=== PATIENT | female | born 1945 | race Caucasian/White ===

== ENCOUNTER 2017-12-26 10:15 | Observation (INO) ==
--- NOTE | 2017-12-26 10:30 | Emergency Department Note ---
Disposition Clinical Impression: Generalized weakness Dyspnea Qualifiers: Dyspnea type: unspecified Qualified Code(s): R06.00 - Dyspnea, unspecified Disposition: Admitted As Inpatient Condition: Fair Referrals: Dayron Flores MD [Primary Care Provider] - Forms: ED Satisfaction Letter Time of Disposition: 11:07 Weakness HPI - General Chief complaint: ED Weakness Stated complaint: weakness Time Seen by Provider: 12/26/17 10:26 Source: family, EMS Mode of arrival: EMS Limitations: no limitations Nursing Notes Reviewed: Yes Vital Signs Reviewed: Yes - History of Present Illness HPI Narrative: Alert and oriented nontoxic-appearing 72-year-old female presents by EMS for evaluation of generalized weakness/fatigue, shortness of breath, and "I woke up shaking this morning". She states that she has noticed a gradual increase in her generalized weakness/fatigue over the course of the past several days. This was markedly worse this morning upon her awakening. She also complains of a mild degree of shortness of breath, particularly with exertion as well. She denies any chest pain, productive cough, or hemoptysis. She denies any abdominal pain, nausea, or vomiting. She denies any headache or visual disturbances. She denies any focal weakness of any extremities. She states that she has had a history of anemia in the past which has required transfusions on approximately 6 different occasions. She does state the symptoms feel similar to previous episodes of anemia. She denies any blood loss through hematuria, hematochezia, melena, or hematemesis. Pt Subjective Complaint: generalized weakness/fatigue Onset (ago): day(s) Duration: gradually worsening Location: generalized Pain Scale: 0 Improves with: none Worsens with: none Associated symptoms: Reports: shortness of breath. Denies: chest pain, confusion, diaphoresis, dysuria, fever/chills, headaches, nausea/vomiting - Related Data Home Medications Medication Instructions Recorded Confirmed Atenolol [Tenormin] 25 mg PO DAILY 06/07/15 08/27/16 DiphenhydraMINE [Benadryl] 50 mg PO HS 06/07/15 08/27/16 FLUoxetine HCl [Prozac] 40 mg PO DAILY 06/07/15 08/27/16 Glimepiride [Amaryl] 1 mg PO 0800 06/07/15 08/27/16 Lisinopril [Zestril] 20 mg PO DAILY 06/07/15 08/27/16 Omeprazole [PriLOSEC] 20 mg PO DAILY 06/07/15 08/27/16 Buspirone HCl [Buspar] 15 mg PO BID 08/27/16 08/27/16 HYDROcodone/Acet 7.5/325 mg [[place] 1 tab PO BID PRN 08/27/16 08/27/16 7.5-325 mg] Previous Rx's Medication Instructions Recorded Benzonatate [Tessalon] 200 mg PO TID PRN #30 capsule 11/01/16 DiphenhydraMINE [Benadryl] 25 mg PO Q8HR PRN #20 capsule 11/01/16 cephALEXin [Keflex] 500 mg PO QID #40 capsule 11/01/16 Allergies Allergy/AdvReac Type Severity Reaction Status Date / Time guaifenesin [From Mucinex] AdvReac Hives Verified 08/27/16 15:05 morphine AdvReac See Verified 06/06/15 21:15 Comments All systems ED: reviewed and negative except as stated. Constitutional: Reports: as per HPI, weakness (Generalized). Denies: fever, chills, weight change Eyes: Denies: eye pain, eye discharge, vision change ENT ED: Denies: ear pain, throat pain, dental pain, hearing loss, epistaxis, congestion, dysphagia Cardiovascular: Denies: chest pain, palpitations, dyspnea on exertion, edema, syncope Respiratory: Reports: as per HPI, dyspnea. Denies: cough, wheezes, hemoptysis, stridor, sputum production Gastrointestinal: Denies: abdominal pain, nausea, vomiting, diarrhea, constipation, hematemesis, melena, hematochezia Genitourinary: Denies: dysuria, frequency, hematuria, discharge Musculoskeletal: Denies: back pain, neck pain, arthralgia, myalgia Integumentary: Denies: rash, abrasion, lesions Neurological: Denies: headache, weakness, numbness, paresthesias, confusion, abnormal gait, vertigo Psychiatric: Denies: anxiety, depression, suicidal thoughts, homicidal thoughts , auditory hallucinations, visual hallucinations Endocrine: Denies: fatigue Hematological/Lymphatic: Denies: easy bleeding, easy bruising Allergic/Immunologic: Denies: facial swelling, urticaria Past Medical History - Past Medical History Attestation: Yes The following information was validated with the patient. 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 Absent: nystagmus - ENT ENT exam: mucous membranes moist - Neck Neck exam: Present: normal inspection, full ROM, trachea midline - Chest Chest inspection: Present: normal inspection, symmetric chest wall rise - Respiratory Respiratory exam: Present: normal lung sounds bilaterally. Absent: respiratory distress, wheezes, stridor, accessory muscle use, prolonged expiratory phase - Cardiovascular Cardiovascular exam: Present: regular rate, normal rhythm, normal heart sounds - Abdominal Exam Abdominal exam: Present: soft, Non-Tender, normal bowel sounds. Absent: mass, pulsatile mass - Extremities Exam Extremities exam: Present: normal inspection, full ROM, pedal edema (2+ pretibial edema bilaterally). Absent: tenderness - Neurological Exam Neurological exam: Present: alert, oriented X3, normal gait - Psychiatric Psychiatric exam: Present: normal affect, normal mood - Skin Skin exam: Present: warm, dry, intact, normal color. Absent: rash Course Vital Signs Temperature 98.5 F 12/26/17 10:18 Pulse Rate 109 12/26/17 10:18 Respiratory Rate 18 12/26/17 10:18 Blood Pressure 134/62 12/26/17 10:18 O2 Sat by Pulse Oximetry 100 12/26/17 10:18 Temperature 98.5 F 12/26/17 10:18 Pulse Rate 95 12/26/17 10:58 Respiratory Rate 18 12/26/17 10:58 Blood Pressure 127/62 12/26/17 10:58 O2 Sat by Pulse Oximetry 98 12/26/17 10:58 Oxygen Delivery Oxygen Delivery Room Air Weakness - Medical Records Medical records reviewed: Yes I reviewed the patient's medical records. - EKG Data EKG attestation: Yes I reviewed and interpreted this EKG. EKG results narrative: EKG reviewed by Dr. Riggins as well. EKG shows a left bundle branch block at a rate of 107 bpm. QRS duration 144, QT/QTc interval 391/454. No elevation noted. No significant changes when compared to an EKG dated from 08/27/16. Jeff - Jeff Situation: Demographics, MOA Background: Presenting Complaint, Relevant PMH, Meds, & Allergies Assessment: Vital Signs, Course and respsone to treatment, Exam Concerns, Patient/Family Expectation, Pertinant Lab Results, Outstanding Labs Recommendation: Barrier(s) to disposition, Recommendation based on pending studies, treatments, or consults SSada Report Given to: Dr. Thompson Aguilar Repor Time: 11:06
[2017-12-26 10:54] LABS: Bilirubin,Urine Negative (Negative); Blood,Urine Negative (Negative); Clarity,Urine Clear (Clear); Color,Urine Yellow (Yellow); Glucose,Urine (UA) Normal (Normal); Ketones,Urine Negative (Negative); Leukocyte Esterase,Urine Trace (Negative); Nitrite,Urine Negative (Negative); Protein,Urine Negative (Neg-Trace); Specific Gravity,Urine 1.021 (1.010-1.025); Urobilinogen,Urine Normal (Normal)
[2017-12-26 10:57] LABS: Bacteria,Urine None Seen per hpf (None-Few); Hyaline Casts,Urine None Seen per lpf (None-Few); RBC,Urine 0-3 per hpf (0-3); Squamous Epithelial Cell,Urine Moderate per lpf (None-Few)
--- NOTE | 2017-12-26 11:01 | Emergency Department Note ---
Disposition Clinical Impression: Generalized weakness Dyspnea Qualifiers: Dyspnea type: shortness of breath Qualified Code(s): R06.02 - Shortness of breath Anemia Qualifiers: Anemia type: iron deficiency Iron deficiency anemia type: inadequate dietary iron intake Qualified Code(s): D50.8 - Other iron deficiency anemias Disposition: Admitted As Inpatient Condition: Fair Time of Disposition: 14:08 General Adult HPI - General Chief complaint: ED Weakness Stated complaint: weakness Time Seen by Provider: 12/26/17 10:26 Source: family, EMS Mode of arrival: EMS Limitations: no limitations Nursing Notes Reviewed: Yes Vital Signs Reviewed: Yes - History of Present Illness HPI Narrative: Mrs. Cunningham, a 72yo female, presents from home via EMS for evaluation of generalized weakness and fatigue. Onset gradual over the past 3-4 days. Noted to be worse this morning as she awoke shaking and jittery. Associated with mild dyspnea on exertion. Her symptoms are similar to prior episodes in which she had anemia requring tranfusions. Patient notes her hemoglobin has been as low as 4 on prior occasions. Her symptoms today feel similar or slightly worse than when her hemoglobin was 4. Patient has been prescribed iron for iron deficiency anemia however she refuses to take it as it makes her constipation worse. She instead takes her hydrocodone with Metamucil and regular until being intake. Patient refuses EGD she has history of remote gastric stapling 2 for weight loss. Last colonoscopy was sometime ago with no lower GI bleed per patient. Patient does note mild transient peripheral blurry vision. She is followed by [facility] on [facility] for glaucoma and cataracts. This is been ongoing for months. PCP = Dr. Flores ROS: Positive: As above Negative: Fever, chills, cough, chest pains, palpitations, abdominal pains, hematochezia, melena, vomiting. No recent traumas. No focal weakness. Pain Scale: 0 - Related Data Home Medications Medication Instructions Recorded Confirmed FLUoxetine HCl [Prozac] 40 mg PO DAILY 06/07/15 12/26/17 Glimepiride [Amaryl] 1 mg PO 0800 06/07/15 12/26/17 Lisinopril [Zestril] 20 mg PO DAILY 06/07/15 12/26/17 Omeprazole [PriLOSEC] 20 mg PO DAILY 06/07/15 12/26/17 Buspirone HCl [Buspar] 15 mg PO DAILY 08/27/16 12/26/17 Aspirin [Lo-Dose Aspirin EC] 81 mg PO DAILY 12/26/17 12/26/17 Diphenhydramine HCl [Nighttime 50 mg PO DAILY PRN 12/26/17 12/26/17 Sleep Aid] FLUoxetine HCl [Fluoxetine HCl] 40 mg PO QAM 12/26/17 12/26/17 HYDROcodone/Acet 7.5/325 mg [[place] 1 tab PO BID PRN 12/26/17 12/26/17 7.5-325 mg] Lovastatin [Lovastatin] 40 mg PO HS 12/26/17 12/26/17 Metoprolol Succinate [Toprol Xl] 50 mg PO DAILY 12/26/17 12/26/17 Allergies Allergy/AdvReac Type Severity Reaction Status Date / Time guaifenesin [From Mucinex] AdvReac Hives Verified 12/26/17 12:25 morphine AdvReac See Verified 12/26/17 12:25 Comments All systems ED: reviewed and negative except as stated. Review of Systems: As Per HPI Constitutional: Reports: as per HPI, weakness (Generalized). Denies: fever, chills, weight change Eyes: Denies: eye pain, eye discharge, vision change ENT ED: Denies: ear pain, throat pain, dental pain, hearing loss, epistaxis, congestion, dysphagia Cardiovascular: Denies: chest pain, palpitations, dyspnea on exertion, edema, syncope Respiratory: Reports: as per HPI, dyspnea. Denies: cough, wheezes, hemoptysis, stridor, sputum production Gastrointestinal: Denies: abdominal pain, nausea, vomiting, diarrhea, constipation, hematemesis, melena, hematochezia Genitourinary: Denies: dysuria, frequency, hematuria, discharge Musculoskeletal: Denies: back pain, neck pain, arthralgia, myalgia Integumentary: Denies: rash, abrasion, lesions Neurological: Denies: headache, weakness, numbness, paresthesias, confusion, abnormal gait, vertigo Psychiatric: Denies: anxiety, depression, suicidal thoughts, homicidal thoughts , auditory hallucinations, visual hallucinations Endocrine: Denies: fatigue Hematological/Lymphatic: Denies: easy bleeding, easy bruising Allergic/Immunologic: Denies: facial swelling, urticaria Past Medical History - Past Medical History Medical history: Reports: arthritis, diabetes, GERD, hyperlipidemia, renal disease, other Surgical history: Reports: other (gastric sophia, tubal ligation) Psychiatric history: Reports: anxiety, depression 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 Head: atraumatic, normocephalic Eye: normal appearance, PERRL, EOMI, no scleral icterus, no conjunctival injection. Conjunctiva pale. ENT: mucous membranes moist, normal external ear exam Neck: normal inspection, trachea midline, full ROM Chest: normal inspection, symmetric chest rise Respiratory: Good respiratory effort. Bilateral breath sounds are clear without wheezing, crackles, or rhonchi. Cardiovascular: Tachycardic rate and regular rhythm. No clicks, rubs, gallops, or murmors. Normal heart sounds. Abdomen: Obese. Bowel sounds present normoactive x-4 quadrants. Abdomen is soft, nondistended, and nontender. No guarding or rebound. Musculoskeletal: Spontaneously moving all extremities. Skin: Pale. warm, dry, intact. Neuro: Alert and oriented x4. Sensation light touch intact. Psych: Patient's affect is appropriate for situation. - General Limitations: no limitations General appearance: alert Course Course Narrative: EKG data 12/26/17 at 10:23 interpreted as sinus tachycardia with rate of 107. Left bundle branch block that is appropriately discordant. Left axis. Compared to previous dated 08/27/2016 showed no acute ischemic changes; left bundle-branch block present and unchanged. Patient received on sign out from the [facility]AN[facility]. On exam, patient is pale, tachycardic. Neurological neurologically intact, she is subjectively weak. Will provide IV fluid secondary to tachycardia with labwork pending. Patient is anemic to 5.8. She is oriented in type, screen, consented for blood transfusion. Will order 4 units, place a second line, and give 2 units here in emergency department. Patient is agreeable to admission for continued evaluation and management. AP remains appropriate. She does have mild elevation in lactic acid; believe this is secondary to generalized hypoxia secondary to anemia. She does have slight elevation in age corrected d-dimer. This was ordered by the [facility]. Clinically, I have very low clinical suspicion for PE as a cause for her tachycardia and dyspnea. Patient is not PERC negative secondary to tachycardia and age. Wells PE score is 1.5 secondary to tachycardia. I discussed the patient with the admitting hospitalist. She agrees to accept the patient for continued evaluation and management. Vital Signs Temperature 98.5 F 12/26/17 10:18 Pulse Rate 109 12/26/17 10:18 Respiratory Rate 18 12/26/17 10:18 Blood Pressure 134/62 12/26/17 10:18 O2 Sat by Pulse Oximetry 100 12/26/17 10:18 Temperature 98.3 F 12/26/17 13:13 Pulse Rate 107 12/26/17 13:28 Respiratory Rate 20 12/26/17 13:28 Blood Pressure 141/77 12/26/17 13:28 O2 Sat by Pulse Oximetry 100 12/26/17 13:28 Oxygen Delivery Oxygen Delivery Room Air Medical Decision Making - Lab Data Result diagrams: 12/26/17 11:08 12/26/17 11:08 Lab Results 12/26/17 12/26/17 12/26/17 Range/Units 10:41 11:08 11:08 WBC 4.0 L (4.3-11.1) K/mcL RBC 3.65 L (3.82-4.97) M/mcL Hgb 5.8 L* (11.5-15.4) g/dL Hct 23.3 L (35.3-44.9) % MCV 63.8 L (83.0-100.0) fL MCH 15.9 L (28.0-33.3) pg MCHC 24.9 L (31.6-35.5) g/dL RDW 18.9 H (11.5-14.5) % Plt Count 197 (140-400) K/mcL MPV 9.6 (9.4-12.4) fL Immature Gran % 0.7 (0-4) % Seg Neutrophils % 68.4 % Lymphocytes % 20.5 % Monocytes % 9.2 % Eosinophils % 0.7 % Basophils % 0.5 % Neutrophils # 2.7 (1.6-8.9) K/mcL Lymphocytes # 0.8 (0.6-4.6) K/mcL Monocytes # 0.4 (0.0-1.3) K/mcL Eosinophils # 0.0 (0.0-0.6) K/mcL Basophils # 0.0 (0.0-0.2) K/mcL Platelet Estimate Normal (Normal) Hypochromasia Present A (Not Present) Anisocytosis 1+ A (Not Present) PT 12.7 H (9.4-12.1) Seconds INR 1.2 APTT (26.0-36.0) Seconds D-Dimer 884 H (0-500) ng/mLFEU Sodium (136-145) mEq/L Potassium (3.5-5.1) mEq/L Chloride (98-107) mEq/L Carbon Dioxide (23-29) mEq/L BUN (8-23) mg/dL Creatinine (0.60-1.20) mg/dL Est GFR ( Amer) (> 60) Est GFR (Non-Af Amer) (> 60) BUN/Creatinine Ratio (6-26) Glucose (70-105) mg/dL Calculated Osmolality (280-300) Lactic Acid (0.5-2.2) mmol/L Calcium (8.6-10.3) mg/dL Magnesium (1.6-2.6) mg/dL Total Bilirubin (0.3-1.0) mg/dL AST (13-39) Units/L ALT (7-52) Units/L Alkaline Phosphatase (34-104) Units/L Troponin I (< 0.04) ng/mL B-Natriuretic Peptide (Less than 100) pg/mL Serum Total Protein (6.4-8.9) g/dL Albumin (3.5-5.7) g/dL Globulin (2.4-3.5) g/dL Albumin/Globulin Ratio (1.1-2.2) TSH (0.340-5.600) mcIU/mL Urine Color Yellow (Yellow) Urine Clarity Clear (Clear) Urine pH 6.0 (5.0-8.0) pH Units Ur Specific [place] 1.021 (1.010-1.025) Urine Protein Negative (Neg-Trace) mg/dL Urine Glucose (UA) Normal (Normal) mg/dL Urine Ketones Negative (Negative) mg/dL Urine Blood Negative (Negative) Urine Nitrite Negative (Negative) Urine Bilirubin Negative (Negative) Urine Urobilinogen Normal (Normal) mg/dL Ur Leukocyte Esterase Trace H (Negative) Urine Microscopic RBC 0-3 (0-3) per hpf Urine Microscopic WBC 3-5 H (0-3) per hpf Ur Squamous Epith Cells Moderate H (None-Few) per lpf Urine Bacteria None Seen (None-Few) per hpf Hyaline Casts None Seen (None-Few) per lpf Ur Culture Indicated? YES A (NO) Blood Type Antibody Screen Crossmatch 12/26/17 12/26/17 12/26/17 Range/Units 11:08 11:08 11:08 WBC (4.3-11.1) K/mcL RBC (3.82-4.97) M/mcL Hgb (11.5-15.4) g/dL Hct (35.3-44.9) % MCV (83.0-100.0) fL MCH (28.0-33.3) pg MCHC (31.6-35.5) g/dL RDW (11.5-14.5) % Plt Count (140-400) K/mcL MPV (9.4-12.4) fL Immature Gran % (0-4) % Seg Neutrophils % % Lymphocytes % % Monocytes % % Eosinophils % % Basophils % % Neutrophils # (1.6-8.9) K/mcL Lymphocytes # (0.6-4.6) K/mcL Monocytes # (0.0-1.3) K/mcL Eosinophils # (0.0-0.6) K/mcL Basophils # (0.0-0.2) K/mcL Platelet Estimate (Normal) Hypochromasia (Not Present) Anisocytosis (Not Present) PT (9.4-12.1) Seconds INR APTT (26.0-36.0) Seconds D-Dimer (0-500) ng/mLFEU Sodium 135 L (136-145) mEq/L Potassium 3.9 (3.5-5.1) mEq/L Chloride 102 (98-107) mEq/L Carbon Dioxide 23 (23-29) mEq/L BUN 15 (8-23) mg/dL Creatinine 1.03 (0.60-1.20) mg/dL Est GFR ( Amer) > 60 (> 60) Est GFR (Non-Af Amer) 53 L (> 60) BUN/Creatinine Ratio 15 (6-26) Glucose 207 H (70-105) mg/dL Calculated Osmolality 287 (280-300) Lactic Acid 2.9 H (0.5-2.2) mmol/L Calcium 9.1 (8.6-10.3) mg/dL Magnesium 1.7 (1.6-2.6) mg/dL Total Bilirubin 0.6 (0.3-1.0) mg/dL AST 22 (13-39) Units/L ALT 15 (7-52) Units/L Alkaline Phosphatase 80 (34-104) Units/L Troponin I < 0.03 (< 0.04) ng/mL B-Natriuretic Peptide (Less than 100) pg/mL Serum Total Protein 6.7 (6.4-8.9) g/dL Albumin 3.9 (3.5-5.7) g/dL Globulin 2.8 (2.4-3.5) g/dL Albumin/Globulin Ratio 1.4 (1.1-2.2) TSH 2.283 (0.340-5.600) mcIU/mL Urine Color (Yellow) Urine Clarity (Clear) Urine pH (5.0-8.0) pH Units Ur Specific [place] (1.010-1.025) Urine Protein (Neg-Trace) mg/dL Urine Glucose (UA) (Normal) mg/dL Urine Ketones (Negative) mg/dL Urine Blood (Negative) Urine Nitrite (Negative) Urine Bilirubin (Negative) Urine Urobilinogen (Normal) mg/dL Ur Leukocyte Esterase (Negative) Urine Microscopic RBC (0-3) per hpf Urine Microscopic WBC (0-3) per hpf Ur Squamous Epith Cells (None-Few) per lpf Urine Bacteria (None-Few) per hpf Hyaline Casts (None-Few) per lpf Ur Culture Indicated? (NO) Blood Type A NEGATIVE Antibody Screen NEGATIVE Crossmatch See Detail 12/26/17 12/26/17 Range/Units 11:08 11:08 WBC (4.3-11.1) K/mcL RBC (3.82-4.97) M/mcL Hgb (11.5-15.4) g/dL Hct (35.3-44.9) % MCV (83.0-100.0) fL MCH (28.0-33.3) pg MCHC (31.6-35.5) g/dL RDW (11.5-14.5) % Plt Count (140-400) K/mcL MPV (9.4-12.4) fL Immature Gran % (0-4) % Seg Neutrophils % % Lymphocytes % % Monocytes % % Eosinophils % % Basophils % % Neutrophils # (1.6-8.9) K/mcL Lymphocytes # (0.6-4.6) K/mcL Monocytes # (0.0-1.3) K/mcL Eosinophils # (0.0-0.6) K/mcL Basophils # (0.0-0.2) K/mcL Platelet Estimate (Normal) Hypochromasia (Not Present) Anisocytosis (Not Present) PT (9.4-12.1) Seconds INR APTT 30.9 (26.0-36.0) Seconds D-Dimer (0-500) ng/mLFEU Sodium (136-145) mEq/L Potassium (3.5-5.1) mEq/L Chloride (98-107) mEq/L Carbon Dioxide (23-29) mEq/L BUN (8-23) mg/dL Creatinine (0.60-1.20) mg/dL Est GFR ( Amer) (> 60) Est GFR (Non-Af Amer) (> 60) BUN/Creatinine Ratio (6-26) Glucose (70-105) mg/dL Calculated Osmolality (280-300) Lactic Acid (0.5-2.2) mmol/L Calcium (8.6-10.3) mg/dL Magnesium (1.6-2.6) mg/dL Total Bilirubin (0.3-1.0) mg/dL AST (13-39) Units/L ALT (7-52) Units/L Alkaline Phosphatase (34-104) Units/L Troponin I (< 0.04) ng/mL B-Natriuretic Peptide 130 H (Less than 100) pg/mL Serum Total Protein (6.4-8.9) g/dL Albumin (3.5-5.7) g/dL Globulin (2.4-3.5) g/dL Albumin/Globulin Ratio (1.1-2.2) TSH (0.340-5.600) mcIU/mL Urine Color (Yellow) Urine Clarity (Clear) Urine pH (5.0-8.0) pH Units Ur Specific [place] (1.010-1.025) Urine Protein (Neg-Trace) mg/dL Urine Glucose (UA) (Normal) mg/dL Urine Ketones (Negative) mg/dL Urine Blood (Negative) Urine Nitrite (Negative) Urine Bilirubin (Negative) Urine Urobilinogen (Normal) mg/dL Ur Leukocyte Esterase (Negative) Urine Microscopic RBC (0-3) per hpf Urine Microscopic WBC (0-3) per hpf Ur Squamous Epith Cells (None-Few) per lpf Urine Bacteria (None-Few) per hpf Hyaline Casts (None-Few) per lpf Ur Culture Indicated? (NO) Blood Type Antibody Screen Crossmatch Critical Care Time Critical Care Time: Yes Total Critical Care Time: 35 Attestation: The high probability of a clinically significant, sudden or life threatening deterioration of the [heme] system(s) required my full and direct attention, intervention and personal management. The aggregate critical care time was [35] minutes. This time is in addition to time spent performing reported procedures but includes the following: [x] Data Review and interpretation [x] Patient assessment and monitoring of vital signs [x] Documentation [X] Medication orders and management
[2017-12-26] MEDS ORDERED: 0.9 % Sodium Chloride 1,000 ML IVC ONE (11:22)
[2017-12-26 11:25] LABS: Basophils % 0.5 %
[2017-12-26 11:26] LABS: Eosinophils % 0.7 %; Hematocrit 23.3 % (35.3-44.9); Immature Granulocytes % 0.7 % (0-4); Lymphocytes # 0.8 K/mcL (0.6-4.6); Lymphocytes % 20.5 %; Mean Corpuscular HGB Conc 24.9 g/dL (31.6-35.5); Mean Corpuscular Hemoglobin 15.9 pg (28.0-33.3); Mean Corpuscular Volume 63.8 fL (83.0-100.0); Mean Platelet Volume 9.6 fL (9.4-12.4); Monocytes # 0.4 K/mcL (0.0-1.3); Monocytes % 9.2 %; Platelet Count 197 K/mcL (140-400); Red Blood Count 3.65 M/mcL (3.82-4.97); Red Cell Distribution Width 18.9 % (11.5-14.5); Segmented Neutrophils % 68.4 %
[2017-12-26 11:28] LABS: Neutrophils # 2.7 K/mcL (1.6-8.9)
[2017-12-26 11:31] LABS: Hemoglobin 5.8 g/dL (11.5-15.4)
[2017-12-26 11:33] LABS: INR 1.2; Prothrombin Time 12.7 Seconds (9.4-12.1)
[2017-12-26 11:46] LABS: Alanine Aminotransferase 15 Units/L (7-52); Albumin 3.9 g/dL (3.5-5.7); Albumin/Globulin Ratio 1.4 (1.1-2.2); Alkaline Phosphatase 80 Units/L (34-104); Aspartate Amino Transferase 22 Units/L (13-39); BUN/Creatinine Ratio 15 (6-26); Bilirubin,Total 0.6 mg/dL (0.3-1.0); Blood Urea Nitrogen 15 mg/dL (8-23); Calcium 9.1 mg/dL (8.6-10.3); Carbon Dioxide 23 mEq/L (23-29); Chloride 102 mEq/L (98-107); Globulin 2.8 g/dL (2.4-3.5); Glucose 207 mg/dL (70-105); Magnesium 1.7 mg/dL (1.6-2.6); Osmolality,Calculated 287 (280-300); Potassium 3.9 mEq/L (3.5-5.1); Sodium 135 mEq/L (136-145); Total Protein 6.7 g/dL (6.4-8.9); Troponin I < 0.03 ng/mL (< 0.04); eGFR For African Americans > 60 (> 60); eGFR For Non-African Americans 53 (> 60)
[2017-12-26 11:59] LABS: Thyroid Stimulating Hormone 2.283 mcIU/mL (0.340-5.600)
[2017-12-26 12:14] LABS: Hypochromasia Present (Not Present)
[2017-12-26 12:15] LABS: Anisocytosis 1+ (Not Present); Platelet Estimate Normal (Normal)
[2017-12-26] MEDS ORDERED: 0.9 % Sodium Chloride 250 ML ONE ×2 (12:32→16:09)
[2017-12-26] MEDS ORDERED: Acetaminophen 325 MG TABLET PO PRN (12:52)
[2017-12-26] MEDS ORDERED: Naloxone 0.4 MG/ML INJ IVP PRN (12:52)
[2017-12-26] MEDS ORDERED: Furosemide 20 MG/2 ML VIAL IVP ONE (12:58)
[2017-12-26] MEDS ORDERED: D5% in Water 1,000 ML IVC PRN (13:10)
[2017-12-26] MEDS ORDERED: *HR* Dextrose 50 % in Water (Syg) 50 ML SYRINGE IVP PRN (13:10)
[2017-12-26] MEDS ORDERED: Dextrose Gel 15 GM/37.5 ML TUBE PO PRN ×2 (13:10)
--- NOTE | 2017-12-26 13:15 | Internal Med History&Physical ---
<SivasuellenlisandroAriel harding - Last Filed: 12/26/17 14:12> Date of Encounter: 12/26/17 Time of Encounter: 12:15 Internal Medicine - H&P: HPI Chief complaint: Weakness Admitted From: Emergency Dept Plans for Post Hospital Care: Home History of present illness: Ms. Cunningham is a 72 year old female w/PMH of arthritis, diabetes controlled with oral anti-hyperglycemics, GERD, HLD, HTN, and CKD presents from the ED w/CC of weakness and SOB over the past three days that worsened this morning. Pt. also reports shaking uncontrollably. SOB worse w/exertion. Pt. states she had difficulty walking d/t weakness. Reports chronic anemia but denies unusual bleeding. States that she had gastric stapling in 1979 and 1983 and was told she may become anemic as a result. Patient is morbidly obese. Patient denies recent sick contacts, nausea, vomiting, diarrhea, fever, recent illness, headache, changes in vision, cough, chest congestion, abdominal pain, constipation, dizziness, lightheadedness, presyncope, or syncope. Past Med Surg Social Fam HX - Past Medical History Source: patient, old records reviewed Medical history: arthritis, diabetes, GERD, hyperlipidemia, hypertension, renal disease, other Psychiatric history: anxiety, depression - Past Surgical History Surgical History: other (Gastric sophia in 1979 and 1983, Tubal ligation) - Social History Smoking Status: Never smoker Smokeless Tobacco Status: No Alcohol use: none Drug use: none Current living situation: Home Activity Level: Independent ambulation Recent Out of Country Travel Within the Last 8 Weeks: No Exposure or Possible Exposure to Illness During Travel: No - Family History Mother Race: Family Member Ethnicity: Non- Living Status: Age at : 91 Cause of : Complications from fall Father Race: Family Member Ethnicity: Non- Living Status: Age at : 82 Cause of : Complications from fall Hx Family Genitourinary Disorders: Yes (CKD) Hx Family Endocrine Disorder: Yes (DM) Brother Race: Family Member Ethnicity: Non- Living Status: Still Living Hx Family Cardiac Disorders: Yes (HTN, HLD) Hx Family Endocrine Disorder: Yes (DM, Thyroid disease) Sister Race: Family Member Ethnicity: Non- Living Status: Still Living Hx Family Musculoskeletal Disorders: Yes (Chronic pain) Internal Medicine - H&P: Meds FLUoxetine HCl [Prozac] 40 mg PO DAILY 06/07/15 [History] Glimepiride [Amaryl] 1 mg PO 0800 06/07/15 [History] Lisinopril [Zestril] 20 mg PO DAILY 06/07/15 [History] Omeprazole [PriLOSEC] 20 mg PO DAILY 06/07/15 [History] Buspirone HCl [Buspar] 15 mg PO DAILY 08/27/16 [History] Aspirin [Lo-Dose Aspirin EC] 81 mg PO DAILY 12/26/17 [History] Diphenhydramine HCl [Nighttime Sleep Aid] 50 mg PO DAILY PRN 12/26/17 [History] FLUoxetine HCl [Fluoxetine HCl] 40 mg PO QAM 12/26/17 [History] HYDROcodone/Acet 7.5/325 mg [[place] 7.5-325 mg] 1 tab PO BID PRN 12/26/17 [ History] Lovastatin [Lovastatin] 40 mg PO HS 12/26/17 [History] Metoprolol Succinate [Toprol Xl] 50 mg PO DAILY 12/26/17 [History] 3 Allergy/AdvReac Type Severity Reaction Status Date / Time guaifenesin [From Mucinex] AdvReac Hives Verified 12/26/17 12:25 morphine AdvReac See Verified 12/26/17 12:25 Comments All Systems PM: A 10-system review of systems was performed and is negative for pertinent findings except as documented above in the HPI. - Constitutional Constitutional: as per HPI, fatigue, weakness, no chills, no fever(s), no night sweats - EENT Eyes: no change in vision, no discharge, no pain, no photophobia Ears: no ear discharge, no ear pain, no tinnitus Nose, mouth and throat: no dysphagia, no nasal discharge, no neck pain, no sore throat - Breasts Breasts: as per HPI - Cardiovascular Cardiovascular ROS IM: as per HPI, dyspnea, dyspnea on exertion, edema ( Bilateral LEs), no chest pain, no diaphoresis, no lightheadedness, no palpitations, no syncope - Respiratory Respiratory: as per HPI, dyspnea, dyspnea on exertion, no cough, no wheezing, no excessive phlegm production - Gastrointestinal Gastrointestinal: no abdominal pain, no diarrhea, no hematemesis, no hematochezia, no melena, no nausea, no vomiting - Genitourinary Genitourinary: no change in urinary stream, no dysuria, no flank pain, no hematuria Menstruation: as per HPI - Musculoskeletal Musculoskeletal ROS IM: no numbness, no tingling - Integumentary Integumentary IM: no rash, no unusual bruising - Neurological Neurological ROS: as per HPI, weakness, no confusion, no convulsions, no focal weakness, no numbness, no tingling, no tremor(s) - Psychiatric Psychiatric: as per HPI, anxiety, depression - Endocrine Endocrine IM: as per HPI - Hematologic/Lymphatic Hematologic/Lymphatic: no easy bruising - Allergic/Immunologic Allergic/Immunologic: as per HPI - Constitutional Vitals: Temp Pulse Resp BP Pulse Ox 98.2 F 111 20 159/61 100 12/26/17 12:58 12/26/17 12:58 12/26/17 12:58 12/26/17 12:58 12/26/17 11:53 General appearance: Present: cooperative, A&O X 3, morbidly obese, pleasant, no acute distress, answers questions appropriately - Head Head exam: Present: atraumatic, normocephalic - Eye Eye exam: Present: PERRL, conjuntiva pink, sclera anicteric Pupils: Present: PERRL - ENT ENT exam: Present: normal exam - Neck Neck exam general surgery: Present: normal inspection, supple, trachea midline. Absent: lymphadenopathy - Respiratory Respiratory exam: Present: CTAB. Absent: accessory muscle use, rales, rhonchi, wheezes - Cardiovascular Cardiovascular exam: Present: RRR, +S1, +S2. Absent: diastolic murmur, gallop, rubs, systolic murmur - GI/Abdominal GI/Abdominal exam: Present: normal bowel sounds, soft, no peritoneal signs. Absent: distended, tenderness - Rectal Rectal exam: Present: deferred - Additional comments: exam deferred. - Extremities Exam Extremities exam: Present: pedal edema (Bilateral pedal edema), warm, radial pulses palpable and symmetrical. Absent: calf tenderness, cyanotic - Back Exam Back exam: Present: normal inspection - Neurological Exam Neurological exam: Present: CN II-XII intact, oriented X3, no focal deficits. Absent: pronater drift, facial droop, speech deficit - Psychiatric Psychiatric exam: Present: normal affect, normal mood - Skin Skin exam: Present: dry, erythema (Bilateral LEs), intact Internal Med - H&P Results - Labs CBC & Chem 7: 12/26/17 11:08 12/26/17 11:08 - EKG Data Prior EKG available for review: yes EKG comments: 12/26/17 13:25 EKG dated 08/27/16 shows sinus rhythm with LBBB. EKG dated 12/26/17 shows uncertain irregular rhythm with LBBB. - Diagnostic Studies Chest x-ray Additional comments: Impressions Chest X-Ray 12/26/17 10:26 IMPRESSION: 1. No active pulmonary disease. 2. Chronic elevation right hemidiaphragm. D/ / Holden Fletcher MD / Holden Fletcher MD Interpreting Provider: Holden Fletcher MD - Assessment and plan (1) Generalized weakness Current Visit: Yes Status: Acute Assessment and plan: Severe and generalized weakness that has progressively become worse this morning. Pt. states unable to ambulate safely. Pts. current Hgb 5.8 on admission and reports hx of chronic anemia. Pt. typed and screened. 4 units of PRBCs ordered. 20 mg IVP lasix after first unit of PRBCs completed to avoid fluid overload. PT/OT consults. Falls/safety precautions, up with assist, bed rest w/bedside commode w/assist only d/t SOB and weakness. Monitor H/H Q4HR. Pt. discussed w/Dr. Bonds who agrees w/plan of care. Pt. is high risk for further morbidity d/t current hgb of 5.8 and hx of chronic anemia requiring current transfusions, elevated D-dimer and possible PE/DVT(s), SOB, weakness, morbid obesity, hx, and risk factors. Observation. (2) Dyspnea Current Visit: Yes Status: Acute Assessment and plan: Acutely worsening SOB today most likely d/t anemia but also concern for possible PE d/t D-dimer of 884 on admission. VQ scan ordered. Supplemental O2 w/ titration and SpO2 monitoring. Falls/safety precautions, up with assist, bed rest w/bedside commode w/assist only. Qualifiers: Dyspnea type: shortness of breath Qualified Code(s): R06.02 - Shortness of breath; R06.00 - Dyspnea, unspecified; R06.01 - Orthopnea (3) Leukopenia Current Visit: Yes Status: Acute Assessment and plan: Acute leukopenia w/WBC of 4.0 on admission. Pt. denies illness or sx. Currently afebrile and asymptomatic. Likely d/t current anemia. Monitor pt. and f/u labs. Qualifiers: Leukopenia type: unspecified Qualified Code(s): D72.819 - Decreased white blood cell count, unspecified (4) Elevated d-dimer Current Visit: Yes Status: Acute Assessment and plan: Acutely elevated D-dimer of 884 on admission. Pt. reports SOB for three days which worsened this morning. Concern for PE. VQ scan ordered. Bilateral Dopplers of LEs ordered to r/o DVT(s). (5) Elevated brain natriuretic peptide (BNP) level Current Visit: Yes Status: Acute Assessment and plan: Acutely elevated BNP of 130 on admission. No recent cardiac work-up or previous dx of CHF. Echocardiogram to assess for HF. Will monitor for fluid overload. Continuous cardiac telemetry. Monitor I&O and daily weight. (6) HTN (hypertension) Current Visit: Yes Status: Chronic Assessment and plan: Hx of chronic HTN. Monitor pt. and VS. Continue pts. Metoprolol and lisinopril. Qualifiers: Hypertension type: essential hypertension Qualified Code(s): I10 - Essential (primary) hypertension (7) HLD (hyperlipidemia) Current Visit: Yes Status: Chronic Assessment and plan: Hx of chronic HLD. Lipid panel in a.m. labs. Continue pts. Lovastatin. Qualifiers: Hyperlipidemia type: pure hypercholesterolemia Qualified Code(s): E78.00 - Pure hypercholesterolemia, unspecified; E78.0 - Pure hypercholesterolemia (8) Anemia Current Visit: Yes Status: Chronic Assessment and plan: Hx of chronic symptomatic anemia. Pts. current Hgb 5.8 and Hct 23.3. Denies unusual bleeding. Last readings were 10.0 in 2017. Pt. typed and screened w/4 units of PRBCs ordered in ED. 20 mg IVP lasix to be administered after first unit to avoid fluid overload. H/H Q4HR. Fecal hemoccult ordered. Falls/safety precautions, up with assist, and bed rest w/bedside commode w/assist only d/t weakness. Qualifiers: Anemia type: iron deficiency Iron deficiency anemia type: inadequate dietary iron intake Qualified Code(s): D50.8 - Other iron deficiency anemias (9) Morbid obesity with BMI of 45.0-49.9, adult Current Visit: Yes Status: Chronic Assessment and plan: Hx of morbid obesity. Pt. also reports familial hx of morbid obesity. BMI currently 43.9. Pt. reports gastric stapling in 1979 and 1983. Monitor I&O and daily weight. Diabetic diet. (10) CKD (chronic kidney disease) stage 3, GFR 30-59 ml/min Current Visit: Yes Status: Chronic Assessment and plan: Hx of chronic CKD. Currently stage 3 w/GFR of 53 and creatinine of 1.03. Will use IV fluids judiciously and avoid nephrotoxins. Monitor I&O and daily weight. (11) Diabetes Current Visit: Yes Status: Chronic Assessment and plan: Hx of chronic diabetes controlled w/oral anti-hyperglycemics. Hold oral medications and administer low-dose correction insulin sliding scale w/ hypoglycemic protocol. A1c in a.m. labs. BG checks ACHS. Qualifiers: Diabetes mellitus type: type 2 Diabetes mellitus penitentiary insulin use: without penitentiary use Diabetes mellitus complication status: with unspecified complications Qualified Code(s): E11.8 - Type 2 diabetes mellitus with unspecified complications (12) DVT prophylaxis Current Visit: Yes Status: Acute Assessment and plan: Bilateral SCDs on LEs for DVT prophylaxis d/t current Hgb <6 and possibility of GI bleed. Fecal hemoccult ordered. Monitor pt. for signs of bleeding. - Time Spent With Patient Total time spent is greater than 50% in coordination of care (as documented) at patient's floor/unit and/or counseling patient: 25 - 35 minutes <Jules Bonds - Last Filed: 12/26/17 17:04> Date of Encounter: 12/26/17 Internal Medicine - H&P: HPI History of present illness: Ms. Cunningham is a 72 year old female All Systems PM: A 10-system review of systems was performed and is negative for pertinent findings except as documented above in the HPI. - Constitutional Vitals: Temp Pulse Resp BP Pulse Ox 98.3 F 100 18 121/67 99 12/26/17 16:28 12/26/17 16:28 12/26/17 16:28 12/26/17 16:28 12/26/17 16:28 Internal Med - H&P Results - Labs CBC & Chem 7: 12/26/17 11:08 12/26/17 11:08 - Impressions ITS Impressions Pulmonary Perfusion Imaging 12/26/17 13:20 IMPRESSION: Very low probability for pulmonary embolism. D/ / Manpreet Giordano MD / Manpreet Giordano MD Interpreting Provider: Manpreet Giordano MD - Attending Attestation I saw and examined this patient independently, and my medical decision making was reviewed with [employer]PA on 2017. I agree with the documented findings, assessment and treatment plan as described in the progress note. - Time Spent With Patient Total time spent is greater than 50% in coordination of care (as documented) at patient's floor/unit and/or counseling patient:
--- NOTE | 2017-12-26 13:29 | Emergency Department Note ---
Disposition Clinical Impression: Generalized weakness, Anemia Dyspnea Qualifiers: Dyspnea type: shortness of breath Qualified Code(s): R06.02 - Shortness of breath Disposition: Admitted As Inpatient Condition: Fair General Adult HPI - General Chief complaint: ED Weakness Stated complaint: weakness Time Seen by Provider: 12/26/17 10:26 Source: family, EMS Mode of arrival: EMS Limitations: no limitations - History of Present Illness Pain Scale: 0 - Related Data Home Medications Medication Instructions Recorded Confirmed FLUoxetine HCl [Prozac] 40 mg PO DAILY 06/07/15 12/26/17 Glimepiride [Amaryl] 1 mg PO 0800 06/07/15 12/26/17 Lisinopril [Zestril] 20 mg PO DAILY 06/07/15 12/26/17 Omeprazole [PriLOSEC] 20 mg PO DAILY 06/07/15 12/26/17 Buspirone HCl [Buspar] 15 mg PO DAILY 08/27/16 12/26/17 Aspirin [Lo-Dose Aspirin EC] 81 mg PO DAILY 12/26/17 12/26/17 Diphenhydramine HCl [Nighttime 50 mg PO DAILY PRN 12/26/17 12/26/17 Sleep Aid] FLUoxetine HCl [Fluoxetine HCl] 40 mg PO QAM 12/26/17 12/26/17 HYDROcodone/Acet 7.5/325 mg [[place] 1 tab PO BID PRN 12/26/17 12/26/17 7.5-325 mg] Lovastatin [Lovastatin] 40 mg PO HS 12/26/17 12/26/17 Metoprolol Succinate [Toprol Xl] 50 mg PO DAILY 12/26/17 12/26/17 Allergies Allergy/AdvReac Type Severity Reaction Status Date / Time guaifenesin [From Mucinex] AdvReac Hives Verified 12/26/17 12:25 morphine AdvReac See Verified 12/26/17 12:25 Comments Constitutional: Reports: as per HPI, weakness (Generalized). Denies: fever, chills, weight change Eyes: Denies: eye pain, eye discharge, vision change ENT ED: Denies: ear pain, throat pain, dental pain, hearing loss, epistaxis, congestion, dysphagia Cardiovascular: Denies: chest pain, palpitations, dyspnea on exertion, edema, syncope Respiratory: Reports: as per HPI, dyspnea. Denies: cough, wheezes, hemoptysis, stridor, sputum production Gastrointestinal: Denies: abdominal pain, nausea, vomiting, diarrhea, constipation, hematemesis, melena, hematochezia Genitourinary: Denies: dysuria, frequency, hematuria, discharge Musculoskeletal: Denies: back pain, neck pain, arthralgia, myalgia Integumentary: Denies: rash, abrasion, lesions Neurological: Denies: headache, weakness, numbness, paresthesias, confusion, abnormal gait, vertigo Psychiatric: Denies: anxiety, depression, suicidal thoughts, homicidal thoughts , auditory hallucinations, visual hallucinations Endocrine: Denies: fatigue Hematological/Lymphatic: Denies: easy bleeding, easy bruising Allergic/Immunologic: Denies: facial swelling, urticaria Past Medical History - Past Medical History Medical history: Reports: arthritis, diabetes, GERD, hyperlipidemia, hypertension, renal disease, other Surgical history: Reports: other (Gastric sophia in 1979 and 1983, Tubal ligation) Psychiatric history: Reports: anxiety, depression 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 - Social History Smoking Status: Never smoker Smokeless Tobacco Status: No Alcohol use: Reports: none Drug use: Reports: none Physical Exam - General Limitations: no limitations General appearance: alert Course Vital Signs Temperature 98.5 F 12/26/17 10:18 Pulse Rate 109 12/26/17 10:18 Respiratory Rate 18 12/26/17 10:18 Blood Pressure 134/62 12/26/17 10:18 O2 Sat by Pulse Oximetry 100 12/26/17 10:18 Temperature 98.3 F 12/26/17 14:26 Pulse Rate 91 12/26/17 14:26 Respiratory Rate 18 12/26/17 14:26 Blood Pressure 140/80 12/26/17 14:26 O2 Sat by Pulse Oximetry 98 12/26/17 14:26 Oxygen Delivery Oxygen Delivery Room Air Medical Decision Making - Lab Data Result diagrams: 12/26/17 11:08 12/26/17 11:08 Lab Results 12/26/17 12/26/17 12/26/17 Range/Units 10:41 11:08 11:08 WBC 4.0 L (4.3-11.1) K/mcL RBC 3.65 L (3.82-4.97) M/mcL Hgb 5.8 L* (11.5-15.4) g/dL Hct 23.3 L (35.3-44.9) % MCV 63.8 L (83.0-100.0) fL MCH 15.9 L (28.0-33.3) pg MCHC 24.9 L (31.6-35.5) g/dL RDW 18.9 H (11.5-14.5) % Plt Count 197 (140-400) K/mcL MPV 9.6 (9.4-12.4) fL Immature Gran % 0.7 (0-4) % Seg Neutrophils % 68.4 % Lymphocytes % 20.5 % Monocytes % 9.2 % Eosinophils % 0.7 % Basophils % 0.5 % Neutrophils # 2.7 (1.6-8.9) K/mcL Lymphocytes # 0.8 (0.6-4.6) K/mcL Monocytes # 0.4 (0.0-1.3) K/mcL Eosinophils # 0.0 (0.0-0.6) K/mcL Basophils # 0.0 (0.0-0.2) K/mcL Platelet Estimate Normal (Normal) Hypochromasia Present A (Not Present) Anisocytosis 1+ A (Not Present) PT 12.7 H (9.4-12.1) Seconds INR 1.2 APTT (26.0-36.0) Seconds D-Dimer 884 H (0-500) ng/mLFEU Sodium (136-145) mEq/L Potassium (3.5-5.1) mEq/L Chloride (98-107) mEq/L Carbon Dioxide (23-29) mEq/L BUN (8-23) mg/dL Creatinine (0.60-1.20) mg/dL Est GFR ( Amer) (> 60) Est GFR (Non-Af Amer) (> 60) BUN/Creatinine Ratio (6-26) Glucose (70-105) mg/dL Calculated Osmolality (280-300) Lactic Acid (0.5-2.2) mmol/L Calcium (8.6-10.3) mg/dL Magnesium (1.6-2.6) mg/dL Total Bilirubin (0.3-1.0) mg/dL AST (13-39) Units/L ALT (7-52) Units/L Alkaline Phosphatase (34-104) Units/L Troponin I (< 0.04) ng/mL B-Natriuretic Peptide (Less than 100) pg/mL Serum Total Protein (6.4-8.9) g/dL Albumin (3.5-5.7) g/dL Globulin (2.4-3.5) g/dL Albumin/Globulin Ratio (1.1-2.2) TSH (0.340-5.600) mcIU/mL Urine Color Yellow (Yellow) Urine Clarity Clear (Clear) Urine pH 6.0 (5.0-8.0) pH Units Ur Specific [place] 1.021 (1.010-1.025) Urine Protein Negative (Neg-Trace) mg/dL Urine Glucose (UA) Normal (Normal) mg/dL Urine Ketones Negative (Negative) mg/dL Urine Blood Negative (Negative) Urine Nitrite Negative (Negative) Urine Bilirubin Negative (Negative) Urine Urobilinogen Normal (Normal) mg/dL Ur Leukocyte Esterase Trace H (Negative) Urine Microscopic RBC 0-3 (0-3) per hpf Urine Microscopic WBC 3-5 H (0-3) per hpf Ur Squamous Epith Cells Moderate H (None-Few) per lpf Urine Bacteria None Seen (None-Few) per hpf Hyaline Casts None Seen (None-Few) per lpf Ur Culture Indicated? YES A (NO) Blood Type Antibody Screen Crossmatch 12/26/17 12/26/17 12/26/17 Range/Units 11:08 11:08 11:08 WBC (4.3-11.1) K/mcL RBC (3.82-4.97) M/mcL Hgb (11.5-15.4) g/dL Hct (35.3-44.9) % MCV (83.0-100.0) fL MCH (28.0-33.3) pg MCHC (31.6-35.5) g/dL RDW (11.5-14.5) % Plt Count (140-400) K/mcL MPV (9.4-12.4) fL Immature Gran % (0-4) % Seg Neutrophils % % Lymphocytes % % Monocytes % % Eosinophils % % Basophils % % Neutrophils # (1.6-8.9) K/mcL Lymphocytes # (0.6-4.6) K/mcL Monocytes # (0.0-1.3) K/mcL Eosinophils # (0.0-0.6) K/mcL Basophils # (0.0-0.2) K/mcL Platelet Estimate (Normal) Hypochromasia (Not Present) Anisocytosis (Not Present) PT (9.4-12.1) Seconds INR APTT (26.0-36.0) Seconds D-Dimer (0-500) ng/mLFEU Sodium 135 L (136-145) mEq/L Potassium 3.9 (3.5-5.1) mEq/L Chloride 102 (98-107) mEq/L Carbon Dioxide 23 (23-29) mEq/L BUN 15 (8-23) mg/dL Creatinine 1.03 (0.60-1.20) mg/dL Est GFR ( Amer) > 60 (> 60) Est GFR (Non-Af Amer) 53 L (> 60) BUN/Creatinine Ratio 15 (6-26) Glucose 207 H (70-105) mg/dL Calculated Osmolality 287 (280-300) Lactic Acid 2.9 H (0.5-2.2) mmol/L Calcium 9.1 (8.6-10.3) mg/dL Magnesium 1.7 (1.6-2.6) mg/dL Total Bilirubin 0.6 (0.3-1.0) mg/dL AST 22 (13-39) Units/L ALT 15 (7-52) Units/L Alkaline Phosphatase 80 (34-104) Units/L Troponin I < 0.03 (< 0.04) ng/mL B-Natriuretic Peptide (Less than 100) pg/mL Serum Total Protein 6.7 (6.4-8.9) g/dL Albumin 3.9 (3.5-5.7) g/dL Globulin 2.8 (2.4-3.5) g/dL Albumin/Globulin Ratio 1.4 (1.1-2.2) TSH 2.283 (0.340-5.600) mcIU/mL Urine Color (Yellow) Urine Clarity (Clear) Urine pH (5.0-8.0) pH Units Ur Specific [place] (1.010-1.025) Urine Protein (Neg-Trace) mg/dL Urine Glucose (UA) (Normal) mg/dL Urine Ketones (Negative) mg/dL Urine Blood (Negative) Urine Nitrite (Negative) Urine Bilirubin (Negative) Urine Urobilinogen (Normal) mg/dL Ur Leukocyte Esterase (Negative) Urine Microscopic RBC (0-3) per hpf Urine Microscopic WBC (0-3) per hpf Ur Squamous Epith Cells (None-Few) per lpf Urine Bacteria (None-Few) per hpf Hyaline Casts (None-Few) per lpf Ur Culture Indicated? (NO) Blood Type A NEGATIVE Antibody Screen NEGATIVE Crossmatch See Detail 12/26/17 12/26/17 Range/Units 11:08 11:08 WBC (4.3-11.1) K/mcL RBC (3.82-4.97) M/mcL Hgb (11.5-15.4) g/dL Hct (35.3-44.9) % MCV (83.0-100.0) fL MCH (28.0-33.3) pg MCHC (31.6-35.5) g/dL RDW (11.5-14.5) % Plt Count (140-400) K/mcL MPV (9.4-12.4) fL Immature Gran % (0-4) % Seg Neutrophils % % Lymphocytes % % Monocytes % % Eosinophils % % Basophils % % Neutrophils # (1.6-8.9) K/mcL Lymphocytes # (0.6-4.6) K/mcL Monocytes # (0.0-1.3) K/mcL Eosinophils # (0.0-0.6) K/mcL Basophils # (0.0-0.2) K/mcL Platelet Estimate (Normal) Hypochromasia (Not Present) Anisocytosis (Not Present) PT (9.4-12.1) Seconds INR APTT 30.9 (26.0-36.0) Seconds D-Dimer (0-500) ng/mLFEU Sodium (136-145) mEq/L Potassium (3.5-5.1) mEq/L Chloride (98-107) mEq/L Carbon Dioxide (23-29) mEq/L BUN (8-23) mg/dL Creatinine (0.60-1.20) mg/dL Est GFR ( Amer) (> 60) Est GFR (Non-Af Amer) (> 60) BUN/Creatinine Ratio (6-26) Glucose (70-105) mg/dL Calculated Osmolality (280-300) Lactic Acid (0.5-2.2) mmol/L Calcium (8.6-10.3) mg/dL Magnesium (1.6-2.6) mg/dL Total Bilirubin (0.3-1.0) mg/dL AST (13-39) Units/L ALT (7-52) Units/L Alkaline Phosphatase (34-104) Units/L Troponin I (< 0.04) ng/mL B-Natriuretic Peptide 130 H (Less than 100) pg/mL Serum Total Protein (6.4-8.9) g/dL Albumin (3.5-5.7) g/dL Globulin (2.4-3.5) g/dL Albumin/Globulin Ratio (1.1-2.2) TSH (0.340-5.600) mcIU/mL Urine Color (Yellow) Urine Clarity (Clear) Urine pH (5.0-8.0) pH Units Ur Specific [place] (1.010-1.025) Urine Protein (Neg-Trace) mg/dL Urine Glucose (UA) (Normal) mg/dL Urine Ketones (Negative) mg/dL Urine Blood (Negative) Urine Nitrite (Negative) Urine Bilirubin (Negative) Urine Urobilinogen (Normal) mg/dL Ur Leukocyte Esterase (Negative) Urine Microscopic RBC (0-3) per hpf Urine Microscopic WBC (0-3) per hpf Ur Squamous Epith Cells (None-Few) per lpf Urine Bacteria (None-Few) per hpf Hyaline Casts (None-Few) per lpf Ur Culture Indicated? (NO) Blood Type Antibody Screen Crossmatch Attestation Statement - Attestation Attestation: I examined this patient and my medical decision-making was reviewed with the Resident Physician, Dr. Mohr. I agree with the documented findings, disposition and treatment plan as described except to the extent set forth below. Patient is a 72-year-old white female with a history of chronic iron deficiency anemia who presents to the emergency department this morning with complaints of gradually worsening fatigue and generalized weakness for 3-4 days. Patient was a sign out to us by Juvenal Cordova the mid-level provider. He performed her initial assessment and all of her labs were ordered prior to our assessment. Please see his documentation for initial H&P. Patient states that it has gradually worsened to the point that she becomes very dyspneic with any exertion or ambulation at home. Patient denies any history of falls or trauma, no syncopal episodes. Patient denies any chest pain pressure or heaviness. Patient denies any diaphoresis, no abdominal pain nausea vomiting or fluid loss. No bowel changes no flank pain. Patient states that she does not take iron supplementation due to its worsening constipation for her. Patient in July 2016 was hospitalized and now it was the timeframe of her last blood transfusion and at that time she also had an iron transfusion but the iron sessions have not been continued by her primary care physician. She denies any history of GI bleeding, patient is not on any anticoagulants does take 1 baby aspirin per day. Patient denies any tarry black stool or bright red blood per rectum. I agree with patient's physical exam findings as documented., On initial assessment patient was tachycardic but with a stable blood pressure. Patient was immediately placed on cardiac monitoring continuous pulse ox IV started saline well was established and IV fluids were initiated for tachycardia. Patient had labs drawn and sent and EKG was obtained. EKG was sinus rhythm with no acute ischemia. Patient's labs show a microcytic hypochromic anemia consistent with her history of iron deficiency anemia with hemoglobin of 5.8. Upon receiving this abnormal lab patient had a second IV placed, and 4 units packed red blood cells was ordered and transfusion orders to be started in the ED. Patient consented to this transfusion. Patient's labs otherwise show a lactic acidosis likely likely due to the tissue hypoxia. Patient also had an elevated d-dimer. I do not feel patient is having symptoms secondary to a possible PE. Or that the patient requires emergent CT imaging at this time. I feel her symptoms are likely due to her profound anemia. Patient will be admitted to a telemetry bed and transfusion was initiated in the emergency department. Patient also received a liter of fluids on arrival. Patient is being closely monitored and case was discussed with hospitalist to accept the patient for admission.
[2017-12-26] MEDS: Insulin LISPRO 300 UNITS/3 ML VIAL SQ SCH ×2 (15:31→22:33)
[2017-12-26] MEDS: Pantoprazole 40 MG VIAL IVP SCH (16:50)
[2017-12-26] MEDS: *HR* HYDROcodone/Acet 7.5/325 mg TABLET PO PRN (18:03)
--- NOTE | 2017-12-26 19:02 | Electrocardiograph Report ---
[facility] [facility] Test Date: 2017-12-26 Pat Name: Rosa Cunningham Department: 102 Room: 2NE26 Gender: F Rose Grower: [place] : 1945 Requested By: Juvenal Cordova Order Number: [id number] Reading MD: Faustino Adler Measurements Intervals [place] Rate: 107 P: VA: 0 QRS: -11 QRSD: 144 T: 137 QT: 391 QTc: 454 Interpretive Statements UNCERTAIN REGULAR RHYTHM LEFT BUNDLE BRANCH BLOCK Electronically Signed On 12-26-2017 19:00:54 EDT by Faustino Adler
[2017-12-26 21:27] LABS: Hemoglobin 7.1 g/dL (11.5-15.4)
--- NOTE | 2017-12-27 00:20 | Event Note ---
Date of Encounter: 12/26/17 Time of Encounter: 21:44 Alerted by patient's nurse that patient's hemoglobin after 2 units of PRBCs is 7.1. According to nurse, fluid status after 20 mg Lasix IVP is good with no additional pedal edema noted. Went to see patient who stated she did not want a third unit of PRBCs right now due to pain suffered in right arm from infiltration of blood causing extreme pain in right arm. IV in right arm discontinued and warm towels placed on patient's right arm. Symptoms resolved. New IV placed in patient's left arm. Next H/H due at 04:00. Nurse instructed to monitor result and alert provider if H/H dropped from previous 7.1 level. 3rd unit of PRBCs to be infused into new IV site on left arm slowly to avoid pain and infiltration. Pt. states when she is transfused in [place], 2 units takes approximately 5 hours to infuse. Pt. resting comfortably and denies any SOB or adverse sx currently. Pt. and f/u labs to be monitored closely as well as new IV site for signs of infiltration.
[2017-12-27 04:14] LABS: Basophils % 0.2 %; Eosinophils # 0.1 K/mcL (0.0-0.6); Hematocrit 25.1 % (35.3-44.9); Hemoglobin 6.9 g/dL (11.5-15.4); Immature Granulocytes % 0.3 % (0-4); Lymphocytes # 1.9 K/mcL (0.6-4.6); Lymphocytes % 33.6 %; Mean Corpuscular HGB Conc 27.5 g/dL (31.6-35.5); Mean Corpuscular Hemoglobin 18.1 pg (28.0-33.3); Mean Corpuscular Volume 65.9 fL (83.0-100.0); Mean Platelet Volume 9.8 fL (9.4-12.4); Monocytes # 0.6 K/mcL (0.0-1.3); Neutrophils # 3.1 K/mcL (1.6-8.9); Nucleated Red Blood Cells 0.5 /100 WBC (0); Platelet Count 195 K/mcL (140-400); Red Blood Count 3.81 M/mcL (3.82-4.97); Red Cell Distribution Width 22.3 % (11.5-14.5); Segmented Neutrophils % 53.9 %
[2017-12-27 04:36] LABS: Alanine Aminotransferase 12 Units/L (7-52); Albumin 3.6 g/dL (3.5-5.7); Albumin/Globulin Ratio 1.4 (1.1-2.2); Alkaline Phosphatase 70 Units/L (34-104); Aspartate Amino Transferase 20 Units/L (13-39); BUN/Creatinine Ratio 12 (6-26); Blood Urea Nitrogen 12 mg/dL (8-23); Calcium 8.9 mg/dL (8.6-10.3); Carbon Dioxide 25 mEq/L (23-29); Chloride 105 mEq/L (98-107); Chol/HDL Ratio 3.5 (0-4.9); Cholesterol 159 mg/dL (< 200); Globulin 2.6 g/dL (2.4-3.5); Glucose 123 mg/dL (70-105); HDL Cholesterol 46 mg/dL (40-59); LDL Cholesterol,Calculated 93 mg/dL (0-99); Osmolality,Calculated 285 (280-300); Potassium 3.8 mEq/L (3.5-5.1); Sodium 137 mEq/L (136-145); Total Protein 6.2 g/dL (6.4-8.9); Triglycerides 102 mg/dL (< 150); eGFR For African Americans > 60 (> 60); eGFR For Non-African Americans 56 (> 60)
[2017-12-27 05:02] LABS: Anisocytosis 2+ (Not Present); Hypochromasia Present (Not Present); Ovalocytes 1+ (Not Present); Platelet Estimate Normal (Normal)
[2017-12-27] MEDS: Pantoprazole 40 MG VIAL IVP SCH ×2 (06:18→16:57)
[2017-12-27 08:00] LABS: Hematocrit 28.1 % (35.3-44.9); Hemoglobin 7.7 g/dL (11.5-15.4)
[2017-12-27] MEDS: Insulin LISPRO 300 UNITS/3 ML VIAL SQ SCH ×4 (08:20→22:53)
[2017-12-27] MEDS: Lisinopril 20 MG TABLET PO SCH (08:26)
[2017-12-27] MEDS: Aspirin Enteric Coated 81 MG Tablet PO SCH (08:27)
[2017-12-27] MEDS: FLUoxetine 20 MG CAPSULE PO SCH (08:27)
[2017-12-27] MEDS: Metoprolol XL (24 HR) Succ 50 MG TAB.ER.24H PO SCH (08:27)
[2017-12-27] MEDS ORDERED: NON-FORMULARY MEDICATION 1 EACH EACH (Fluoxetine Hcl [Fluoxetine Hcl] 40 MG) PO SCH (09:00)
[2017-12-27 09:31] LABS: Estimated Average Glucose 137 mg/dl; Hemoglobin A1C 6.4 %
[2017-12-27 10:57] LABS: Hematocrit 25.9 % (35.3-44.9); Hemoglobin 7.1 g/dL (11.5-15.4)
--- NOTE | 2017-12-27 12:57 | Internal Med Progress Note ---
Date of Encounter: 12/27/17 Time of Encounter: 12:50 - Assessment and plan (1) Anemia Current Visit: Yes Status: Chronic Assessment and plan: Chronic iron deficiency anemia, had a 3 units of PRBC. Hemoglobin is only 7.1 Consult a dietary services manager for possible outpatient iron infusion Transfer 1 more unit of PRBC Qualifiers: Anemia type: iron deficiency Iron deficiency anemia type: inadequate dietary iron intake Qualified Code(s): D50.8 - Other iron deficiency anemias (2) Generalized weakness Current Visit: Yes Status: Acute Assessment and plan: From severe anemia (3) Hyperlipemia Current Visit: Yes Status: Chronic Qualifiers: Hyperlipidemia type: unspecified Qualified Code(s): E78.5 - Hyperlipidemia , unspecified (4) Morbid obesity with BMI of 45.0-49.9, adult Current Visit: Yes Status: Chronic (5) Dyspnea Current Visit: Yes Status: Acute Assessment and plan: From a severe anemia, resolved Qualifiers: Dyspnea type: shortness of breath Qualified Code(s): R06.02 - Shortness of breath; R06.00 - Dyspnea, unspecified; R06.01 - Orthopnea (6) HTN (hypertension) Current Visit: Yes Status: Chronic Qualifiers: Hypertension type: essential hypertension Qualified Code(s): I10 - Essential (primary) hypertension (7) Elevated d-dimer Current Visit: Yes Status: Acute Assessment and plan: VQ scan shows very low probability for PE Leg swelling, We will check a bilateral duplex to rule out DVT - Time Spent With Patient Total time spent is greater than 50% in coordination of care (as documented) at patient's floor/unit and/or counseling patient: 25 - 35 minutes - Subjective Interval history: Ms. Cunningham is a 72 year old female w/PMH of arthritis, diabetes controlled with oral anti-hyperglycemics, GERD, HLD, HTN, and CKD presents from the ED w/CC of weakness and SOB over the past three days that worsened this morning. Pt. also reports shaking uncontrollably. SOB worse w/exertion. Pt. states she had difficulty walking d/t weakness. Reports chronic anemia but denies unusual bleeding. States that she had gastric stapling in 1979 and 1983 and was told she may become anemic as a result. Patient was admitted for severe iron deficiency anemia deceived her 3 units of PRBC. Her hemoglobin only improved from 5.6 up to 7.1. Her shortness of breath and the fatigue improved. I discussed the with dietary services manager see if she can follow up as outpatient for IV iron infusion. patient also agrees will giv another unit of PRBC, ;and one dose of IV lasix, V/Q showed very low probability. - Constitutional Vitals: Temp Pulse Resp BP Pulse Ox 98 F 87 18 134/59 91 12/27/17 11:00 12/27/17 11:00 12/27/17 11:00 12/27/17 11:12/27/17 11:00 General appearance: Present: cooperative, A&O X 3, morbidly obese, pleasant, no acute distress, answers questions appropriately Exam: CONSTITUTIONAL: patient appears as an age appropriate female in no acute distress. EYES Clear sclerae, bilateral pupils are equal, reactive to light. EMOI. RESPIRATORY: No accessory muscle use, bilateral clear to auscultation, no wheezing, no crackles/rales. CARDIOVASCULAR: Regular heart rate, normal S1 and S2, no murmurs GASTROINTESTINAL: bowel sounds present, soft, no tenderness. MUSCULOSKELETAL: Joints in normal range of motion, no clubbing, no edema, no cyanosis. Bilateral peripheral pulses 2+. NEUROLOGIC: CN II to XII are grossly intact, no focal neurological deficit. Internal Medicine: Result - Labs CBC & Chem 7: 12/27/17 10:48 12/27/17 03:31 Labs: Short CBC 12/26/17 12/27/17 12/27/17 Range/Units 20:54 03:31 07:51 WBC 5.7 (4.3-11.1) K/mcL Hgb 7.1 L 6.9 L 7.7 L (11.5-15.4) g/dL Hct 26.0 L 25.1 L 28.1 L (35.3-44.9) % Plt Count 195 (140-400) K/mcL Neutrophils # 3.1 (1.6-8.9) K/mcL 12/27/17 Range/Units 10:48 WBC (4.3-11.1) K/mcL Hgb 7.1 L (11.5-15.4) g/dL Hct 25.9 L (35.3-44.9) % Plt Count (140-400) K/mcL Neutrophils # (1.6-8.9) K/mcL BMP 12/27/17 03:31 Sodium 137 Potassium 3.8 Chloride 105 Carbon Dioxide 25 BUN 12 Creatinine 0.98 Glucose 123 H Calcium 8.9 Liver Function 12/27/17 Range/Units 03:31 Total Bilirubin 1.0 (0.3-1.0) mg/dL AST 20 (13-39) Units/L ALT 12 (7-52) Units/L Alkaline Phosphatase 70 (34-104) Units/L Albumin 3.6 (3.5-5.7) g/dL - ABG Interpretation ABG results: PT/INR, D-dimer PT 12.7 Seconds (9.4-12.1) H 12/26/17 11:08 D-Dimer 884 ng/mLFEU (0-500) H 12/26/17 11:08 - Impressions Impressions Echocardiogram 12/26/17 13:02 Impressions: LVEF 65%. Mild left ventricular diastolic dysfunction. Normal right ventricular structure and function. Mild-moderate tricuspid regurgitation. Moderate pulmonary hypertension by TR gradient, 50 mmHg. IVC is not well visualized. Left Ventricular Wall Motion: Rest Echo Findings The mid inferior lateral and basal inferior lateral erazo were not visualized. All other wall segments showed normal motion. Findings: Study Quality * Technically challenging due to body habitus. ECG Findings * Normal sinus rhythm. Left Ventricle * LVEF 65%. * Normal LV chamber size and wall thickness. * Mild left ventricular diastolic dysfunction. Right Ventricle * Normal right ventricular structure and function. Left Atrium * Mildly dilated left atrium. Right Atrium * Normal right atrial size. Mitral Valve * Mild mitral annular calcification * No mitral regurgitation. * Mitral valve not well visualized. * No mitral stenosis. Aortic Valve * No aortic regurgitation. * Aortic valve not well visualized. * No aortic stenosis. Tricuspid Valve * Tricuspid valve not well visualized. * Mild-moderate tricuspid regurgitation. Pulmonic Valve * Pulmonic valve is not well visualized. * No pulmonic stenosis. * No pulmonic regurgitation. Pulmonary Artery * Pulmonary artery not well visualized. Aorta * Normally sized aortic root. Pericardium * There is no pericardial effusion present. Interatrial Septum * Interatrial septum not well evaluated. IVC * The IVC is not well evaluated. Pulmonary Perfusion Imaging 12/26/17 13:20 IMPRESSION: Very low probability for pulmonary embolism. D/ / Manpreet Giordano MD / Manpreet Giordano MD Interpreting Provider: Manpreet Giordano MD Consult Discharge Plan - Plan Referrals: Dayron Flores MD [Primary Care Provider] -
[2017-12-27] MEDS ORDERED: 0.9 % Sodium Chloride 250 ML ONE (13:41)
[2017-12-27] MEDS: *HR* HYDROcodone/Acet 7.5/325 mg TABLET PO PRN (22:57)
[2017-12-28 05:03] LABS: Mean Platelet Volume 10.2 fL (9.4-12.4)
[2017-12-28 05:05] LABS: Basophils % 0.5 %; Eosinophils # 0.1 K/mcL (0.0-0.6); Eosinophils % 1.7 %; Hematocrit 26.8 % (35.3-44.9); Hemoglobin 7.5 g/dL (11.5-15.4); Immature Granulocytes % 0.3 % (0-4); Lymphocytes # 2.1 K/mcL (0.6-4.6); Lymphocytes % 34.4 %; Monocytes # 0.7 K/mcL (0.0-1.3); Monocytes % 11.7 %; Neutrophils # 3.1 K/mcL (1.6-8.9); Nucleated Red Blood Cells 0.3 /100 WBC (0); Platelet Count 194 K/mcL (140-400); Red Blood Count 3.94 M/mcL (3.82-4.97); Red Cell Distribution Width 23.3 % (11.5-14.5); Segmented Neutrophils % 51.4 %
[2017-12-28 05:23] LABS: Albumin 3.5 g/dL (3.5-5.7); Albumin/Globulin Ratio 1.3 (1.1-2.2); Bilirubin,Direct 0.2 mg/dL (0.0-0.2); Bilirubin,Indirect 0.6 mg/dL (0.0-1.2); Bilirubin,Total 0.8 mg/dL (0.3-1.0); Globulin 2.7 g/dL (2.4-3.5); Total Protein 6.2 g/dL (6.4-8.9)
[2017-12-28 05:24] LABS: % Iron Saturation 3 % (15-50); Ferritin 9 ng/ml (10-120); Iron 16 mcg/dL (50-170); Lactate Dehydrogenase 144 Units/L (140-271); Transferrin 332 mg/dL (203-362)
[2017-12-28 05:25] LABS: Alanine Aminotransferase 14 Units/L (7-52); Albumin 3.6 g/dL (3.5-5.7); Albumin/Globulin Ratio 1.4 (1.1-2.2); Alkaline Phosphatase 66 Units/L (34-104); Aspartate Amino Transferase 24 Units/L (13-39); BUN/Creatinine Ratio 20 (6-26); Bilirubin,Total 0.8 mg/dL (0.3-1.0); Blood Urea Nitrogen 20 mg/dL (8-23); Carbon Dioxide 24 mEq/L (23-29); Chloride 104 mEq/L (98-107); Globulin 2.5 g/dL (2.4-3.5); Glucose 153 mg/dL (70-105); Osmolality,Calculated 290 (280-300); Sodium 137 mEq/L (136-145); Total Protein 6.1 g/dL (6.4-8.9); eGFR For African Americans > 60 (> 60); eGFR For Non-African Americans 54 (> 60)
[2017-12-28] MEDS: Pantoprazole 40 MG VIAL IVP SCH (05:32)
[2017-12-28 05:40] LABS: Anisocytosis 2+ (Not Present); Hypochromasia Present (Not Present); Microcytosis Present (Not Present); Ovalocytes 1+ (Not Present); Platelet Estimate Normal (Normal); Poikilocytosis 1+ (Not Present)
[2017-12-28 05:48] LABS: Folate 9.2 ng/mL (3.0-16.0)
[2017-12-28 06:57] VITALS: BP 121/61
[2017-12-28] MEDS: Insulin LISPRO 300 UNITS/3 ML VIAL SQ SCH (08:34)
[2017-12-28] MEDS: FLUoxetine 20 MG CAPSULE PO SCH (08:35)
[2017-12-28] MEDS: Metoprolol XL (24 HR) Succ 50 MG TAB.ER.24H PO SCH (08:35)
[2017-12-28] MEDS: Aspirin Enteric Coated 81 MG Tablet PO SCH (08:35)
[2017-12-28] MEDS: Lisinopril 20 MG TABLET PO SCH (08:36)
--- NOTE | 2017-12-28 10:20 | Discharge Summary ---
<Brendon Cardenas - Last Filed: 12/28/17 10:17> - NOTES TO OUTPATIENT PROVIDER Notes to Outpatient Provider: Dr. Flores, I saw your patient in the hospital for acute on chronic anemia. See hospital summary. Patient's anemia improved to adequate level after 3 units. We have scheduled patient follow-up with the cancer center for iron infusions since she cannot tolerate PO iron. Suspect chronic anemia is due to poor iron intake secondary to gastric stapling and vegetarian diet. Patient should have a CBC drawn prior to following up with you. Patient also may require and EGD and an updated colonoscopy. Orders not resulted at time of discharge: Pending orders 12/28/17 04:34 Haptoglobin AM 0400 Vitamin D 25 Hydroxy AM 0400 12/29/17 04:00 Complete Blood Count [HEME] AM 0400 Comprehensive Metabolic Panel AM 0400 12/30/17 04:00 Complete Blood Count [HEME] AM 0400 Comprehensive Metabolic Panel AM 0400 Date of Encounter: 12/28/17 Time of Encounter: 10:17 - Discharge Diagnosis (1) Anemia Priority: Primary Status: Chronic Assessment and Plan: Chronic iron deficiency due to poor absorption (h/o gastric stapling), no use of PO supplementation, and iron-poor diet. Qualifiers: Anemia type: iron deficiency Iron deficiency anemia type: inadequate dietary iron intake Qualified Code(s): D50.8 - Other iron deficiency anemias (2) Morbid obesity with BMI of 45.0-49.9, adult Priority: Secondary Status: Chronic (3) HTN (hypertension) Priority: Secondary Status: Chronic Qualifiers: Hypertension type: essential hypertension Qualified Code(s): I10 - Essential (primary) hypertension (4) HLD (hyperlipidemia) Priority: Secondary Status: Chronic Qualifiers: Hyperlipidemia type: pure hypercholesterolemia Qualified Code(s): E78.00 - Pure hypercholesterolemia, unspecified; E78.0 - Pure hypercholesterolemia (5) Diabetes Priority: Secondary Status: Chronic Qualifiers: Diabetes mellitus type: type 2 Diabetes mellitus distribution center supervisor insulin use: without distribution center supervisor use Diabetes mellitus complication status: with unspecified complications Qualified Code(s): E11.8 - Type 2 diabetes mellitus with unspecified complications (6) Elevated d-dimer Priority: Primary Status: Acute Assessment and Plan: Low risk VQ scan & negative b/l LE DVT study Hospital course: Ms. Cunningham is a 72 year old female with multiple comorbidities including HTN, HLP , morbid obesity, status post gastric stapling in the early 1980s, and DM-II on PO meds. Patient does have history of chronic anemia requiring occasional transfusions; last transfusion was approximately 3 years ago per patient. Patient presents with acute symptomatic anemia with initial hemoglobin level 5.8 g/dL. Patient does consume iron-poor diet, does not tolerate PO iron, and is not getting any parenteral iron. Patient states over the last couple weeks has received comments from friends that she looks pale and shaky; patient is also noted that over the past week or so she has felt generally more weak. Patient has not had any symptoms of blood loss including hematemesis, epistaxis , melena, hematochezia, or hematuria. Patient admitted 2 days ago after combination of symptoms when she woke up unable to move without becoming extremely fatigued and short of breath. Initial studies demonstrated microcytic anemia, iron deficiency pattern, and elevated D dimer. Throughout course, patient was given 3 units of PRB sees with hemoglobin stabilizing at 7.5 g/dL. D dimer was collected on initial evaluation which was elevated prompting followed VQ scan which was determined as low risk for PE; follow-up DVT studies negative on both lower extremities. Vital signs are stable and patient is currently asymptomatic at her baseline. Patient demonstrates adequate ambulatory abilities using usual cane and does not have any vital sign decompensation including dyspnea or tachycardia. Discharge discussed with: patient - Time Spent with Patient Total time spent providing and/or coordinating discharge services: - Discharge Medications Home Medications: Glimepiride [Amaryl] 1 mg PO 0800 06/07/15 [History] Lisinopril [Zestril] 20 mg PO DAILY 06/07/15 [History] Omeprazole [PriLOSEC] 20 mg PO DAILY 06/07/15 [History] Buspirone HCl [Buspar] 15 mg PO DAILY 08/27/16 [History] Aspirin [Lo-Dose Aspirin EC] 81 mg PO DAILY 12/26/17 [History] Diphenhydramine HCl [Nighttime Sleep Aid] 50 mg PO DAILY PRN 12/26/17 [History] FLUoxetine HCl [Fluoxetine HCl] 40 mg PO QAM 12/26/17 [History] HYDROcodone/Acet 7.5/325 mg [[place] 7.5-325 mg] 1 tab PO BID PRN 12/26/17 [ History] Lovastatin 40 mg PO HS 12/26/17 [History] Metoprolol Succinate [Toprol Xl] 50 mg PO DAILY 12/26/17 [History] Allergies/Adverse Reactions: 3 Allergy/AdvReac Type Severity Reaction Status Date / Time guaifenesin [From Mucinex] AdvReac Hives Verified 12/26/17 12:25 morphine AdvReac See Verified 12/26/17 12:25 Comments Date of admission: 12/26/17 12:38 Primary care physician: Dayron Flores MD Consults: 12/26/17 12:54 Consult to Councilman [CONS] Routine Reason for SW Consult: Please assess patient for possible home needs for post -discharge planning. 12/26/17 13:57 PT [Consult to Physical Therapy] [CONS] Routine Comment: Evaluate, develop and implement POC Reason for Consult: Patient reports difficulty w/ambulation d/t weakness. States she is unable to ambulate safely. Please assess patient for ambulation strength, safety, stability, and possible home assistive/rehabilitation needs for post- discharge planning. Does patient have active BEDREST order?: Yes Is patient medically & hemodynamically stable?: Yes Patient assessed for mobility or mobilized this visit?: No 12/26/17 13:58 OT [Consult to Occupational Therapy] [CONS] Routine Comment: Evaluate, develop and implement POC Reason for Consult: Patient reports difficulty w/ambulation d/t weakness. States she is unable to ambulate safely. Please assess patient for ambulation strength, safety, stability, and possible home assistive/rehabilitation needs for post- discharge planning. Does patient have active BEDREST order?: Yes Is patient medically & hemodynamically stable?: Yes Patient assessed for mobility or mobilized this visit?: No 12/27/17 12:31 Consult to Oncology Hematology [CONS] Routine Consulting Provider: Lulú Barr Reason for Consult: anemia Time Notified: 12:32 Call Completed: Yes Discharging clinician: Brendon Cardenas Anticipated date of discharge: 12/28/17 - Constitutional Vitals: Temp Pulse Resp BP Pulse Ox 97.9 F 66 16 121/61 97 12/28/17 06:53 12/28/17 06:53 12/28/17 06:53 12/28/17 06:53 12/28/17 08:45 CONSTITUTIONAL: Alert and oriented X3, well-nourished, well appearing, demonstrates ambulation over approximately 30 foot distance without any difficulty HEAD: Normocephalic; atraumatic. EYES: PER, no scleral icterus, no drainage, no conjunctival injection NOSE: The nose is normal in appearance without rhinorrhea Oropharynx: pink/moist, no tonsillar edema/erythema/exudates RESP: NRD without use of accessory musculature, CTA b/l with no wheezes/rales/ rhonchi CARD: Regular rhythm, without murmurs, rubs, or gallop ABD: grossly normal, soft, non-tender, no guarding/distention/rigidity SKIN: normal appearance, no pallor/diaphoresis,mottling,jaundice,cyanosis EXT: Rad pulses 2+ and symmetrical; no lateralizing edema; no other lesions seen PSYCH: appropriate mood/affect - Patient Status Disposition: Home, Self-Care Condition: Fair Functional capacity at discharge: uses cane/walker Overall status at discharge: patient is back to baseline - Ambulatory Orders Ambulatory Orders: Complete Blood Count w/o Diff [HEME] Time Frame: 12/30/17, Facility: [facility], Location: Lab - Discharge Instructions Instructions: Iron Rich Diet (DC), Iron Deficiency Anemia (DC), Anemia (DC), Anemia (GEN) Follow Up With: [facility] [Provider Group] Dayron Flores MD [Primary Care Provider] - 01/05/18 2:30 pm Additional Instructions: Following with Dr. Flores on scheduled date I have ordered a repeat CBC for your anemia to be done in advance of your appointment with Dr. Flores; have drawn prior to appointment. When you meet with Dr. Flores, you will need to revisit getting an upper endoscopy as well as an updated colonoscopy follow-up with hematology for iron infusions as scheduled please read all educational handouts please call your doctor or present to the ED for further evaluation if you have any new or recurrent symptoms including, but not limited to: lightheadedness, dizziness, blacking out, visual disturbances, confusion, chest pain, abnormal heart beat, shortness of breath, worsening fatigue/weakness, nausea/vomiting, any evidence blood in vomitus, black stools, bloody stools, blood in the urine, or any signs of bleeding. - Diet and Activity Activity: increase activity as tolerated Diet: diabetic diet <RomaClifford T - Last Filed: 12/28/17 13:26> Orders not resulted at time of discharge: Pending orders 12/28/17 04:34 Haptoglobin AM 0400 12/29/17 04:00 Complete Blood Count [HEME] AM 0400 Comprehensive Metabolic Panel AM 0400 12/30/17 04:00 Complete Blood Count [HEME] AM 0400 Comprehensive Metabolic Panel AM 0400 Date of Encounter: 12/28/17 - Discharge Diagnosis (1) Anemia Status: Chronic Qualifiers: Anemia type: iron deficiency Iron deficiency anemia type: inadequate dietary iron intake Qualified Code(s): D50.8 - Other iron deficiency anemias (2) Morbid obesity with BMI of 45.0-49.9, adult Status: Chronic (3) HTN (hypertension) Status: Chronic Qualifiers: Hypertension type: essential hypertension Qualified Code(s): I10 - Essential (primary) hypertension (4) HLD (hyperlipidemia) Status: Chronic Qualifiers: Hyperlipidemia type: pure hypercholesterolemia Qualified Code(s): E78.00 - Pure hypercholesterolemia, unspecified; E78.0 - Pure hypercholesterolemia (5) Diabetes Status: Chronic Qualifiers: Diabetes mellitus type: type 2 Diabetes mellitus distribution center supervisor insulin use: without custodial use Diabetes mellitus complication status: with unspecified complications Qualified Code(s): E11.8 - Type 2 diabetes mellitus with unspecified complications (6) Elevated d-dimer Status: Acute Hospital course: Ms. Cunningham is a 72 year old female - Time Spent with Patient Total time spent providing and/or coordinating discharge services: Date of admission: 12/26/17 12:38 Primary care physician: Dayron Flores MD Consults: 12/26/17 12:54 Consult to Councilman [CONS] Routine Reason for SW Consult: Please assess patient for possible home needs for post -discharge planning. 12/26/17 13:58 OT [Consult to Occupational Therapy] [CONS] Routine Comment: Evaluate, develop and implement POC Reason for Consult: Patient reports difficulty w/ambulation d/t weakness. States she is unable to ambulate safely. Please assess patient for ambulation strength, safety, stability, and possible home assistive/rehabilitation needs for post- discharge planning. Does patient have active BEDREST order?: Yes Is patient medically & hemodynamically stable?: Yes Patient assessed for mobility or mobilized this visit?: No 12/27/17 12:31 Consult to Oncology Hematology [CONS] Routine Consulting Provider: Lulú Barr Reason for Consult: anemia Time Notified: 12:32 Call Completed: Yes 12/28/17 11:37 Consult to Oncology Hematology [CONS] Routine Consulting Provider: Brendon Cardneas Reason for Consult: anemia Time Notified: 11:37 Call Completed: Yes - Constitutional Vitals: Temp Pulse Resp BP Pulse Ox 97.9 F 66 16 121/61 97 12/28/17 06:53 12/28/17 06:53 12/28/17 06:53 12/28/17 06:53 12/28/17 08:45 - Attending Attestation I examined this patient and my medical decision-making was reviewed with the Resident Physician. I agree with the documented findings, disposition and treatment plan as described except to the extent set forth below. Seen and evaluated at the bedside, 72 F admitted for acute on chronic iron deficiency anemia, Morbid Obesity , HTN, HLD She is seen s/p 5 units RBCs, Hb is stable, she is ambulatory and in no distress. She has been set up with Oncology for Venofer infusion. DVT and PE has been ruled out, She refused EGD in the past , she is s/p gastric bypass and cannot take po Iron. She is clinically stable to be discharged home, Follow up with PCP and Oncology. Rest of details as in resident physician's documentation.
--- NOTE | 2017-12-28 12:36 | Oncology Inp Consult Note ---
Date of Encounter: 12/29/17 Time of Encounter: 12:15 Assessment and Plan (1) Symptomatic anemia Status: Acute Assessment and plan: Hgb on admission 5.8, now 7.5 s/p 3 units PRBC. Symptomatically improved. Microcytic with MCV 63 on admission, hypochromic anemia, likely secondary to Iron Deficiency s/p history of gastric stapling. Unable to tolerate oral iron- will arrange for outpatient follow up with continue lab monitoring and transfusions/iron as needed. Encouraged repeat colonoscopy and EGD. Patient declines all upper endoscopy secondary to her history of gastric stapling but amendable to colonoscopy. She wishes to call her previous GI physician in [place] for repeat colonoscopy. Discussed that if this is not arranged by her next follow up with us we can assist with GI referral if she wishes. She is planned to have her hgb rechecked mid next week with her PCP, instructed to call office if she cannot have this lab checked and we will arrange order. Will arrange for type and screen prior to her follow up along with a treatment appointment following her follow up with Dr. Betancourt in anticipation for possible needed PRBC or Iron. The plan as above discussed in detail with patient who verbalized understanding. Plan also discussed with Dr. Betancourt who agrees with plan of care. B12 and Folate replete. Iron deficiency. Vitamin D Deficiency- likely secondary to malabsorption- will have patient called by nursing to discuss taking Vitamin D replacement and order called to pharmacy of preference. - Data of Consult Patient: new to practice Consult date: 12/28/17 Requesting Physician: Clifford Brandon MD Primary Care Provider: Dayron Flores MD - Consult Narrative Reason for consult: EDEL History of present illness: Ms. Cunningham is a 72 year old female with past medical history significant for arthritis, diabetes controlled with oral anti-hyperglycemics, GERD, HLD, HTN, and CKD. Patient presented to [facility] ER on 12/26/17 with report of increased weakness and SOB. Hgb on admission 5.8. Ms. Cunningham has a history of gastric stapling in 1979 and around 1983 for weight loss purposes. She has a history of GI bleed and was hospitalized around 2014 for anemia. She states her last colonoscopy was in 2013 with gastroenterology in [place], results from this colonoscopy are a bit unclear but patient does state she is currently due. She has had multiple issues with GI bleeding, anemia over the past several years necessitating multiple blood transfusions. This has been primarily managed by her PCP. She has never had an EGD and declines any upper endoscopy. Past Med Surg Social Fam HX - Past Medical History Medical history: arthritis, diabetes, GERD, hyperlipidemia, hypertension, renal disease, other Psychiatric history: anxiety, depression - Past Surgical History Surgical History: other (Gastric sophia in 1979 and 1983, Tubal ligation) - Social History Smoking Status: Never smoker Smokeless Tobacco Status: No Alcohol use: none Drug use: none - Family History Mother Race: Family Member Ethnicity: Non- Living Status: Age at : 91 Cause of : Complications from fall Hx Family Genitourinary Disorders: Yes (CKD) Hx Family Endocrine Disorder: Yes (DM) Hx Family Neurologic Disorders: Yes (Dementia) Father Race: Family Member Ethnicity: Non- Living Status: Age at : 82 Cause of : Complications from fall Hx Family Genitourinary Disorders: Yes (CKD) Hx Family Endocrine Disorder: Yes (DM) Brother Race: Family Member Ethnicity: Non- Living Status: Still Living Hx Family Cardiac Disorders: Yes (HTN, HLD) Hx Family Endocrine Disorder: Yes (DM, Thyroid disease) Sister Race: Family Member Ethnicity: Non- Living Status: Still Living Hx Family Musculoskeletal Disorders: Yes (Chronic pain) Medications and Allergies Glimepiride [Amaryl] 1 mg PO 0800 06/07/15 [History] Lisinopril [Zestril] 20 mg PO DAILY 06/07/15 [History] Omeprazole [PriLOSEC] 20 mg PO DAILY 06/07/15 [History] Buspirone HCl [Buspar] 15 mg PO DAILY 08/27/16 [History] Aspirin [Lo-Dose Aspirin EC] 81 mg PO DAILY 12/26/17 [History] Diphenhydramine HCl [Nighttime Sleep Aid] 50 mg PO DAILY PRN 12/26/17 [History] FLUoxetine HCl [Fluoxetine HCl] 40 mg PO QAM 12/26/17 [History] HYDROcodone/Acet 7.5/325 mg [[place] 7.5-325 mg] 1 tab PO BID PRN 12/26/17 [ History] Lovastatin 40 mg PO HS 12/26/17 [History] Metoprolol Succinate [Toprol Xl] 50 mg PO DAILY 12/26/17 [History] 3 Allergy/AdvReac Type Severity Reaction Status Date / Time guaifenesin [From Mucinex] AdvReac Hives Verified 12/26/17 12:25 morphine AdvReac See Verified 12/26/17 12:25 Comments Constitutional: Present: as per HPI, fatigue, weakness. Absent: anorexia, weight loss Eyes: Absent: change in vision Nose, mouth and throat: Absent: dysphagia Cardiovascular: Absent: chest pain, irregular heart rhythm Respiratory: Present: as per HPI, dyspnea on exertion. Absent: hemoptysis Gastrointestinal: Absent: abdominal pain, change in bowel habits, hematemesis, hematochezia, melena, nausea, vomiting Genitourinary: Absent: dysuria Musculoskeletal: Absent: numbness, tingling Integumentary: Absent: wounds Neurological: Absent: focal weakness, frequent falls Hematologic/Lymphatic: Present: as per HPI Oncology - Exam - Constitutional Vitals: Temp Pulse Resp BP Pulse Ox 97.9 F 66 16 121/61 97 12/28/17 06:53 12/28/17 06:53 12/28/17 06:53 12/28/17 06:53 12/28/17 08:45 General appearance: cooperative, no acute distress, no febrile - Head Head exam: Present: atraumatic - ENT ENT exam: Present: mucous membranes moist - Respiratory Respiratory exam: Present: decreased breath sounds. Absent: respiratory distress - Cardiovascular Cardiovascular exam: Present: RRR, +S1, +S2 - GI/Abdominal GI/Abdominal exam: Present: normal bowel sounds, soft. Absent: tenderness - Extremities Exam Extremities exam: Absent: calf tenderness Additional comments: +1 DISABILITY LIAISON OFFICER Edema BLE - Neurological Exam Neurological exam: Present: alert, oriented X3, no focal deficits, strengths equal and symetr throughout - Psychiatric Psychiatric exam: Present: normal affect, normal mood - Skin Skin exam: Present: dry, intact, normal color, warm Oncology - Results Labs: Short CBC 12/28/17 Range/Units 04:34 WBC 6.1 (4.3-11.1) K/mcL Hgb 7.5 L (11.5-15.4) g/dL Hct 26.8 L (35.3-44.9) % Plt Count 194 (140-400) K/mcL Neutrophils # 3.1 (1.6-8.9) K/mcL BMP 12/28/17 04:34 Sodium 137 Potassium 4.0 Chloride 104 Carbon Dioxide 24 BUN 20 Creatinine 1.02 Glucose 153 H Calcium 9.0 Liver Function 12/28/17 12/28/17 Range/Units 04:34 04:34 Total Bilirubin 0.8 0.8 (0.3-1.0) mg/dL Direct Bilirubin 0.2 (0.0-0.2) mg/dL AST 24 24 (13-39) Units/L ALT 14 15 (7-52) Units/L Alkaline Phosphatase 66 65 (34-104) Units/L Albumin 3.6 3.5 (3.5-5.7) g/dL Consult Discharge Plan - Plan Instructions: Iron Rich Diet (DC), Iron Deficiency Anemia (DC), Chronic Obstructive Pulmonary Disease (DC), Chronic Obstructive Pulmonary Disease (GEN) , Anemia (DC), Anemia (GEN), COPD, Manager Internet (GEN), COPD Exacerbation, Manager Internet (GEN) Additional Instructions: Following with Dr. Flores on scheduled date I have ordered a repeat CBC for your anemia to be done in advance of your appointment with Dr. Flores; have drawn prior to appointment. When you meet with Dr. Flores, you will need to revisit getting an upper endoscopy as well as an updated colonoscopy follow-up with hematology for iron infusions as scheduled please read all educational handouts please call your doctor or present to the ED for further evaluation if you have any new or recurrent symptoms including, but not limited to: lightheadedness, dizziness, blacking out, visual disturbances, confusion, chest pain, abnormal heart beat, shortness of breath, worsening fatigue/weakness, nausea/vomiting, any evidence blood in vomitus, black stools, bloody stools, blood in the urine, or any signs of bleeding. Referrals: [facility] [Provider Group] - 01/09/18 11:20 am Víctor Betancourt [Non-Partnered Physician] - 01/09/18 11:20 am Dayron Flores MD [Primary Care Provider] - 01/05/18 2:30 pm
== END 2017-12-28 13:57 | disposition home or self-care (01) ==
LOC: EMEROO 10:15 → SUATTDRO 12:38 → INTOOBSV 12:38 → 2NENU 12:38
PROVIDERS: ADMIT Hospitalist; ATTEND Internal Medicine